=== PATIENT | male | born 1975 | race Caucasian/White ===

== ENCOUNTER 2022-08-12 18:11 | Emergency (ER) | payer MEDICAID ==
[2022-08-12 20:07] VITALS: BP 153/83; O2SAT 100
[2022-08-12 20:33] LABS: Absolute Neutrophil Ct (ANC) 2.83 x10^3/uL (1.4-6.9); Basophil (Absolute #) 0.04 x10^3/uL (0-0.4); Eosinophil % 5.1 % (0.00-5.0); Eosinophil (Absolute #) 0.24 x10^3/uL (0-0.5); Hematocrit 42.4 % (42-50); Hemoglobin 14.7 g/dL (12.5-18.0); Lymphocyte (Absolute #) 1.07 x10^3/uL (1.0-4.6); Lymphocytes % 22.5 % (24.0-44.0); Mean Cell Volume 103.7 fL (78-100); Mean Corpuscular Hemoglobin 35.9 pg (26-32); Mean Corpuscular Hgb Concent. 34.7 g/dL (32-36); Mean Platelet Volume 9.7 fL (7.5-11.0); Monocyte (Absolute #) 0.56 x10^3/uL (0.0-1.3); Monocytes % 11.8 % (0.0-12.0); Neutrophil % 59.6 % (36.0-66.0); Platelet Count 104 x10^3/uL (150-450); Red Blood Count 4.09 x10^6/uL (4.1-5.6); Red Cell Distribution Width 13.8 % (11.5-14.0); White Blood Count 4.8 x10^3/uL (4.0-10.5)
[2022-08-12 20:57] LABS: ALBUMIN 3.6 g/dL (3.5-5.0); ALKALINE PHOSPHATASE 104 U/L (38-126); ANION GAP 8.3 MEQ/L (5-15); BLOOD UREA NITROGEN 9 mg/dL (9-20); CHLORIDE 103 mmol/L (98-107); Calcium 8.6 mg/dL (8.4-10.2); Carbon Dioxide 28 mmol/L (22-30); Creatinine 1 0.63 mg/dL (0.66-1.25); EST GLOMERULAR FILTRATION RATE > 60.0 ML/MIN; Glucose 110 mg/dL (74-106); Potassium 3.7 mmol/L (3.5-5.1); SGOT/AST 44 U/L (17-59); SGPT/ALT 36 U/L (0-50); SODIUM 135 mmol/L (137-145); Total Protein 7.3 g/dL (6.3-8.2)
[2022-08-12] MEDS ORDERED: ENOXAPARIN SODIUM SQ ONE (21:19)
--- NOTE | 2022-08-12 21:27 | ERPHSYRPT ---
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 He also has a history of clots in his spleen he has been off Lovenox for 1 month and has had a recurrence. He reports he is not on oral anticoagulants because of a low platelet count. He is followed by at [facility]. Timing/Duration: day(s) (3) Activities at Onset: none Quality: aching Location: other (Right arm) Chest Pain Radiation: no radiation Severity of Pain-Max: mild Severity of Pain-Current: mild Modifying Factors: Improves With: nothing Nitro Today/Relief: no nitro taken today Aspirin Treatment Today: 325 mg x 1 Associated Symptoms: No shortness of breath, No chest pain Allergies/Adverse Reactions: gluten Allergy (Verified 08/12/22 19:59) Hx Tetanus, Diphtheria Vaccination/Date Given: Yes Hx Influenza Vaccination/Date Given: Yes Hx Pneumococcal Vaccination/Date Given: No Immunizations Up to Date: No Travel Risk - International Travel Have you traveled outside of the country in past 3 weeks: No - Coronavirus Screening Are you exhibiting any of the following symptoms?: No Close contact with a COVID-19 positive Pt in past 14-21 Days: No - Vaccine Status Have you recieved a Covid-19 vaccination: No - Review of Systems Constitutional: No Fever, No Chills Eyes: No Symptoms Ears, Nose, & Throat: No Symptoms Respiratory: No Cough, No Dyspnea Cardiac: No Chest Pain, No Edema, No Syncope Abdominal/Gastrointestinal: No Abdominal Pain, No Nausea, No Vomiting, No Diarrhea Genitourinary Symptoms: No Dysuria Musculoskeletal: No Back Pain, No Neck Pain Skin: No Rash Neurological: No Dizziness, No Focal Weakness, No Sensory Changes Psychological: No Symptoms Endocrine: No Symptoms All Other Systems: Reviewed and Negative - Past Medical History Pertinent Past Medical History: Yes Neurological History: No Pertinent History ENT History: No Pertinent History Cardiac History: No Pertinent History Respiratory History: No Pertinent History Endocrine Medical History: No Pertinent History Musculoskeletal History: No Pertinent History GI Medical History: Esophageal Disorder History: No Pertinent History Psycho-Social History: No Pertinent History Male Reproductive Disorders: No Pertinent History Other Medical History: esophageal varices, low platelets - Past Surgical History Past Surgical History: Yes Neuro Surgical History: No Pertinent History Cardiac: No Pertinent History Respiratory: No Pertinent History Gastrointestinal: Appendectomy Genitourinary: No Pertinent History Musculoskeletal: No Pertinent History Male Surgical History: No Pertinent History Other Surgical History: esophageal band - Social History Smoking Status: Light tobacco smoker Exposure to second hand smoke: No Drug Use: none Patient Lives Alone: Yes - Nursing Vital Signs Nursing Vital Signs: Initial Vital Signs Pulse Rate 73 08/12/22 20:01 Respiratory Rate 18 08/12/22 20:01 Blood Pressure 153/83 08/12/22 20:01 O2 Sat by Pulse Oximetry 100 08/12/22 20:01 Pain Scale Pain Intensity 7 - Physical Exam General Appearance: no apparent distress, alert Eye Exam: PERRL/EOMI, eyes nml inspection Ears, Nose, Throat Exam: normal ENT inspection, moist mucous membranes Neck Exam: normal inspection, non-tender, supple Respiratory Exam: normal breath sounds, lungs clear, No respiratory distress Cardiovascular Exam: regular rate/rhythm, normal heart sounds, No edema Gastrointestinal/Abdomen Exam: soft, No tenderness, No mass Back Exam: normal inspection, No CVA tenderness, No vertebral tenderness Extremity Exam: normal range of motion, other (The right upper extremity is sw ollen warm and has some varicosities over the medial aspect of the right arm.) Neurologic Exam: alert, oriented x 3, cooperative, normal mood/affect, nml cerebellar function, sensation nml, No motor deficits Skin Exam: normal color, warm, dry Lymphatic Exam: No adenopathy SpO2: 100 - Course Nursing assessment & vital signs reviewed: Yes - Radiology Ultrasound Exam Venous Upper Extremity Ultrasound: Other (Ultrasound shows clot in both the subclavian and axillary on the right nonocclusive) Ordered Tests: Active Orders 24 hr Category Date Time Status Ultrasound Unilateral Extremities [VENOUS UNILAT/ Exams 08/12/22 21:11 Taken LIMITED EXTREMIT] [US] Stat CBC W DIFF Stat Lab 08/12/22 20:25 Completed CMP Stat Lab 08/12/22 20:25 Completed D-DIMER QUANTITATIVE Stat Lab 08/12/22 20:25 Completed Medication Summary Discontinued Medications Generic Name Dose Route Start Last Admin Trade Name Freq PRN Reason Stop Dose Admin Enoxaparin Sodium 150 mg 08/12/22 21:19 Enoxaparin Sodium 150 Mg/Ml Syringe SQ 08/12/22 21:20 1XONLY ONE Lab/Rad Data: Laboratory Result Diagrams 08/12/22 20:25 08/12/22 20:25 Laboratory Results 08/12/22 08/12/22 08/12/22 Range/Units 20:25 20:25 20:25 WBC 4.8 (4.0-10.5) x10^3/uL RBC 4.09 L (4.1-5.6) x10^6/uL Hgb 14.7 (12.5-18.0) g/dL Hct 42.4 (42-50) % MCV 103.7 H (78-100) fL MCH 35.9 H (26-32) pg MCHC 34.7 (32-36) g/dL RDW 13.8 (11.5-14.0) % Plt Count 104 L (150-450) x10^3/uL MPV 9.7 (7.5-11.0) fL Gran % 59.6 (36.0-66.0) % Immature Gran % (Auto) 0.2 (0.00-0.4) % Nucleat RBC Rel Count 0.0 (0.00-0.1) % Eos # (Auto) 0.24 (0-0.5) x10^3/uL Immature Gran # (Auto) 0.01 (0.00-0.03) x10^3u/L Absolute Lymphs (auto) 1.07 (1.0-4.6) x10^3/uL Absolute Monos (auto) 0.56 (0.0-1.3) x10^3/uL Absolute Nucleated RBC 0.00 (0.00-0.01) x10^3u/L Lymphocytes % 22.5 L (24.0-44.0) % Monocytes % 11.8 (0.0-12.0) % Eosinophils % 5.1 H (0.00-5.0) % Basophils % 0.8 (0.0-0.4) % Absolute Granulocytes 2.83 (1.4-6.9) x10^3/uL Basophils # 0.04 (0-0.4) x10^3/uL D-Dimer 3.69 H* (0.0-0.50) mg/L Sodium 135 L (137-145) mmol/L Potassium 3.7 (3.5-5.1) mmol/L Chloride 103 (98-107) mmol/L Carbon Dioxide 28 (22-30) mmol/L Anion Gap 8.3 (5-15) MEQ/L BUN 9 (9-20) mg/dL Creatinine 0.63 L (0.66-1.25) mg/dL Estimated GFR > 60.0 ML/MIN Glucose 110 H (74-106) mg/dL Calcium 8.6 (8.4-10.2) mg/dL Total Bilirubin 2.10 H (0.2-1.3) mg/dL AST 44 (17-59) U/L ALT 36 (0-50) U/L Alkaline Phosphatase 104 (38-126) U/L Serum Total Protein 7.3 (6.3-8.2) g/dL Albumin 3.6 (3.5-5.0) g/dL - Progress Progress: unchanged Air Movement: good Blood Culture(s) Obtained: No Antibiotics given: No - Departure Departure Disposition: Home Clinical Impression: Thrombosis of right upper extremity Condition: Stable Critical Care Time: No Referrals: EJ MORROW MD [Primary Care Provider] - Follow up/PCP as directed Prescriptions: Enoxaparin Sodium [Lovenox] 150 mg SQ Q12H 30 Days #60
[2022-08-12 21:31] VITALS: PULSE 76
--- NOTE | 2022-08-13 08:57 | XRAY ---
Indication: Right upper extremity DVT. Two-dimensional sonogram and color Doppler imaging of the major venous vessels of the right upper extremity performed. Comparison: None Visualized right subclavian and axillary veins demonstrate nonoccluding thrombi. Remaining visualized right internal jugular, brachial, basilic, cephalic, radial, and ulnar veins are negative for thrombosis. Patent veins demonstrate normal compressibility and normal venous waveforms. Impression: Nonoccluding thrombi in subclavian and axillary veins. Comment: Preliminary report was given.
== END 2022-08-12 21:40 | disposition home or self-care (01) ==
LOC: ED 18:11
DX: I82.621 Acute embolism and thrombosis of deep veins of right upper extremity (principal); M79.601 Pain in right arm; Z86.718 Personal history of other venous thrombosis and embolism; Z79.01 Long term (current) use of anticoagulants; Z28.310 Unvaccinated for COVID-19; Z72.0 Tobacco use
CPT/HCPCS: 36415; 80053; 85025; 85379; 93971; 96372; 99282; J1650

== ENCOUNTER 2024-12-21 10:57 | Day surgery (SDC) | payer BC, OTHER ==
[~2024-12-21 10:57] MED LIST: XYLOCAINE 1% HCL 20 ML MDV ONE
[2024-12-21] MEDS ORDERED: CEFAZOLIN 2 GM/100 ML IV ONE (11:10)
[2024-12-21] MEDS ORDERED: Lactated Ringers 1,000 ML IV ONE (11:10)
[2024-12-21] MEDS ORDERED: NACL IV ONE (11:10)
[2024-12-21] MEDS: CEFAZOLIN 2 GM/100 ML NaCl 2 GM/100 ML IVPB IV SCH (11:29)
[2024-12-21] MEDS: Lactated Ringers 1,000 ML IV ONE (11:30)
[2024-12-21] MEDS ORDERED: CEFAZOLIN 2 GM/100 ML NaCl 2 GM/100 ML IVPB IV SCH (11:30)
[2024-12-21 11:38] VITALS: BP 123/82; PULSE 78; RESP 16; TEMP 98; O2SAT 99
[2024-12-21 11:39] LABS: Hematocrit 22.9 % (40.1-51.0); Hemoglobin 7.2 g/dL (13.7-17.5); Mean Cell Volume 104.1 fL (79.0-92.2); Mean Corpuscular Hemoglobin 32.7 pg (25.7-32.2); Mean Corpuscular Hgb Concent. 31.4 g/dL (32.3-36.5); Mean Platelet Volume 9.6 fL (9.4-12.4); Platelet Count 49 x10^3/uL (163-337); Red Cell Distribution Width 20.5 % (11.6-14.4); White Blood Count 2.7 x10^3/uL (4.23-9.07)
[2024-12-21 11:54] LABS: ANION GAP 13.1 MEQ/L (5-15); Calcium 8.2 mg/dL (8.4-10.2); Creatinine 1 2.77 mg/dL (0.66-1.25); EST GLOMERULAR FILTRATION RATE 26.8 ML/MIN; Potassium 3.1 mmol/L (3.5-5.1)
[2024-12-21 11:55] LABS: INR 1.1 (0.8-3.0); PROTIME 11.9 SECONDS (9.4-12.5)
[2024-12-21] MEDS ORDERED: POTASSIUM CHLORIDE 20 mEq IN WATER 100ML 100 ML IV ONE (12:30)
[2024-12-21 13:01] LABS: Slide Review YES
== END 2024-12-21 13:25 | disposition home or self-care (01) ==
LOC: SDC 10:57
PROVIDERS: ATTEND Surgery
DX: Z53.8 Procedure and treatment not carried out for other reasons (principal); Z79.01 Long term (current) use of anticoagulants; I10 Essential (primary) hypertension
CPT/HCPCS: 36415; 80048; 85027; 85610; J0690; J1642